=== PATIENT | male | born 1990 | race Caucasian/White ===

== ENCOUNTER 2017-06-29 19:43 | Emergency (ER) | payer SELFPAY ==
[2017-06-29 19:52] VITALS: BP 139/91
[2017-06-29] MEDS ORDERED: PREDNISONE 20 MG TABLET PO ONE (20:19)
[2017-06-29] MEDS ORDERED: IPRATROPIUM/ALBUTEROL 0.5-2.5 MG/3 ML AMPUL NEB ONE ×2 (20:19)
--- NOTE | 2017-06-29 20:23 | ER Document Report ---
ED Respiratory Problem - General Chief Complaint: Asthma Exacerbation Stated Complaint: DIFFICULTY BREATHING Time Seen by Provider: 06/29/17 20:01 Notes: Patient is a 27-year-old male with a history of asthma that comes emergency department for chief complaint of wheezing and shortness of breath. He states that for his job he entered a home that has a lot of cats, he states after he left to be started having increased wheezing and difficulty breathing. He does not have an inhaler anymore. He denies fever, cough, congestion, sick symptoms. He does not smoke. He denies any other medical history. He denies any daily medications. TRAVEL OUTSIDE OF THE [place] IN LAST 30 DAYS: No Past Medical History - General Information source: Patient - Social History Smoking Status: Never Smoker Frequency of alcohol use: None Drug Abuse: None Lives with: Alone Family History: Reviewed & Not Pertinent Pulmonary Medical History: Reports: Hx Asthma Surgical Hx: Negative - Immunizations Immunizations up to date: Yes Hx Diphtheria, Pertussis, Tetanus Vaccination: Yes Review of Systems - Review of Systems Constitutional: No symptoms reported EENT: No symptoms reported Cardiovascular: No symptoms reported Respiratory: See HPI Gastrointestinal: No symptoms reported Genitourinary: No symptoms reported Male Genitourinary: No symptoms reported Musculoskeletal: No symptoms reported Skin: No symptoms reported Hematologic/Lymphatic: No symptoms reported Neurological/Psychological: No symptoms reported Physical Exam - Vital signs Vitals: Temp Pulse Resp BP Pulse Ox 97.7 F 95 18 139/91 H 94 06/29/17 19:51 06/29/17 19:51 06/29/17 19:51 06/29/17 19:51 06/29/17 19:51 Interpretation: Normal - General General appearance: Appears well, Alert In distress: None - HEENT Head: Normocephalic, Atraumatic Eyes: Normal Conjunctiva: Normal Extraocular movements intact: Yes Eyelashes: Normal Pupils: PERRL Mouth/Lips: Normal Mucous membranes: Normal Pharynx: Normal Neck: Normal - Respiratory Respiratory status: No respiratory distress. No: Respiratory distress, Labored , Tachypnea Chest status: Nontender Breath sounds: Decreased air movement, Wheezing - End expiratory wheezes throughout. No: Nonproductive cough, Productive cough Chest palpation: Normal - Cardiovascular Rhythm: Regular Heart sounds: Normal auscultation Murmur: No - Abdominal Inspection: Normal Distension: No distension Bowel sounds: Normal Tenderness: Nontender Organomegaly: No organomegaly - Back Back: Normal, Nontender. No: Tender - Extremities General upper extremity: Normal inspection, Nontender, Normal ROM, Normal strength General lower extremity: Normal inspection, Nontender, Normal ROM, Normal strength - Neurological Neuro grossly intact: Yes Cognition: Normal Orientation: AAOx4 [place] Coma Scale Eye Opening: Spontaneous [place] Coma Scale Verbal: Oriented [place] Coma Scale Motor: Obeys Commands [place] Coma Scale Total: 15 Speech: Normal Motor strength normal: LUE, RUE, LLE, RLE Sensory: Normal - Psychological Associated symptoms: Normal affect, Normal mood - Skin Skin Temperature: Warm Skin Moisture: Dry Skin Color: Normal Course - Re-evaluation Re-evalutation: After DuoNeb's, prednisone, patient's symptoms completely resolved. Clear lungs on repeat examination. No hypoxia or signs of distress. No sick symptoms. Patient given albuterol inhaler for home, discussed follow-up, discussed return precautions, patient states understanding and agreement. - Vital Signs Vital signs: Temp Pulse Resp BP Pulse Ox 97.7 F 95 18 139/91 H 94 06/29/17 19:51 06/29/17 19:51 06/29/17 19:51 06/29/17 19:51 06/29/17 19:51 Discharge - Discharge Clinical Impression: Wheezing Asthma exacerbation Qualifiers: Asthma severity: unspecified severity Asthma persistence: intermittent Qualified Code(s): J45.21 - Mild intermittent asthma with (acute) exacerbation Condition: Stable Disposition: HOME, SELF-CARE Additional Instructions: Your examination is consistent with an asthma exacerbation. Take the prednisone as prescribed, the albuterol as directed. I recommend an [id number] antiallergy medication daily. Follow-up with primary care. Return to the emergency department for any concerning or worsening symptoms. Prescriptions: Albuterol Sulfate [Proair HFA Inhalation Aerosol 8.5 gm MDI] 2 puff IH Q4H PRN # 1 mdi PRN Reason: Prednisone 60 mg PO DAILY #12 tablet Forms: Return to Work
[2017-06-29] MEDS ORDERED: ALBUTEROL SULFATE HFA (90 MCG/PUFF) 8 GM MDI (1 MDI/ER DISP) IH ONE (21:34)
== END 2017-06-29 21:49 | disposition home or self-care (01) ==
LOC: ER 19:43
DX: J45.21 Mild intermittent asthma with (acute) exacerbation (principal); R06.02 Shortness of breath
CPT/HCPCS: 94640 ×2; 99284; J7512; J3490; J7620

== ENCOUNTER 2018-10-30 14:13 | Emergency (ER) | payer SELFPAY ==
[2018-10-30] MEDS ORDERED: HYDROCODONE/ACETAMINOPHEN 5-325 MG (6 TAB/ER DISP) PO PRN (15:47)
[2018-10-30] MEDS ORDERED: IBUPROFEN 800 MG TABLET PO ONE (15:49)
--- NOTE | 2018-10-30 15:50 | ER Document Report ---
ED General - General Chief Complaint: Finger Injury Stated Complaint: LEFT THIRD DIGIT PAIN, SWELLING Time Seen by Provider: 10/30/18 15:43 Mode of Arrival: Ambulatory Information source: Patient TRAVEL OUTSIDE OF THE [place] IN LAST 30 DAYS: No - HPI Patient complains to provider of: Left middle finger paronychia Onset: Other - Past couple of days Onset/Duration: Sudden Quality of pain: No pain Severity: None Associated symptoms: denies: Chills, Fever Exacerbated by: Denies Relieved by: Denies Similar symptoms previously: No Recently seen / treated by doctor: No Notes: 28-year-old male with history of nail biting here with a paronychia to the left middle finger. No fevers or chills. No history of diabetes or other immune compromise. - Related Data Allergies/Adverse Reactions: aspirin [From Excedrin Extra Strength] Allergy (Verified 10/30/18 15:34) caffeine [From Excedrin Extra Strength] Allergy (Verified 10/30/18 15:34) cat dander Allergy (Verified 10/30/18 15:34) Past Medical History - General Information source: Patient - Social History Smoking Status: Never Smoker Chew tobacco use (# tins/day): No Frequency of alcohol use: Occasional Drug Abuse: None Family History: Reviewed & Not Pertinent Patient has suicidal ideation: No Patient has homicidal ideation: No Pulmonary Medical History: Reports: Hx Asthma Renal/ Medical History: Denies: Hx Peritoneal Dialysis - Immunizations Immunizations up to date: Yes Hx Diphtheria, Pertussis, Tetanus Vaccination: Yes Review of Systems - Review of Systems Notes: Constitutional: No fevers. No chills. EENT: No eye redness. No eye pain. No ear pain. No sore throat. Cardiovascular: No chest pain. No palpitations. Respiratory: No cough. No shortness of breath. No respiratory distress. Gastrointestinal: No abdominal pain. No nausea, vomiting, or diarrhea. Genitourinary: Atraumatic. No lesions. No pain. No discharge. Musculoskeletal: Atraumatic. No swelling. No deformities. Positive paronychia left middle finger Skin: No rash or lesions. Lymphatic: No swollen lymph nodes. Neurologic: No headache. No syncope. Psychiatric: No suicidal or homicidal ideation. Physical Exam - Vital signs Vitals: Temp Pulse Resp BP Pulse Ox 98.3 F 83 16 142/90 H 97 10/30/18 14:19 10/30/18 14:19 10/30/18 14:19 10/30/18 14:19 10/30/18 14:19 - Notes Notes: General: Well-developed, well-nourished. In no acute distress. Non-toxic appearing. Cardiac: Well-perfused. Regular rate and rhythm. No murmurs, rubs, or gallops. Pulmonary: No respiratory distress. No cyanosis. Bilateral lung fiels are clear to auscultation. Abdominal: Non-distended. Non-rigid. Bowels sounds are present in all four quadrants. No guarding or rebound. HEENT: Head is atraumatic. Conjunctivae not reddened. No tearing. PERRL. EOMI. Orbits atraumatic. No periorbital swelling or erythema. Oropharynx is without erythema, swelling, or exudates. Neck: Supple. No adenopathy. No meningismus. Dermatologic: Warm with good turgor. No rash. Atraumatic. Chest: Atraumatic. No chest wall tenderness to palpation. Musculoskeletal: Moves all extremities well. No range of motion deficits. no muscular or joint tenderness. No paraspinal muscle tenderness. no midline spinal tenderness or step-off. Paronychia present to the left middle finger. Very tender to palpate. No lymphangitis. Genitourinary: Examination deferred Neurologic: No gross neurologic deficits. Psychiatric: Normal mood. Course - Re-evaluation Re-evalutation: 10/30/18 15:45 Procedure note: The paronychia was prepped with Betadine swabs. No anesthesia was administered. Simple stab to the purulent part of the paronychia with an 11 blade scalpel. Copious yellow-green foul-smelling material approximately 2 mL's. Soaked in Betadine and saline and dressed appropriately. Tolerated procedure well. - Vital Signs Vital signs: Temp Pulse Resp BP Pulse Ox 98.3 F 83 16 142/90 H 97 10/30/18 14:19 10/30/18 14:19 10/30/18 14:19 10/30/18 14:19 10/30/18 14:19 Discharge - Discharge Clinical Impression: Paronychia Condition: Good Disposition: HOME, SELF-CARE Instructions: Post Incision and Drainage, Paronychia ([facility]) Additional Instructions: Return as needed the emergency department if symptoms not improving in the next couple of days. Take all antibiotics until they are completed. Prescriptions: Sulfamethoxazole/Trimethoprim [Bactrim Ds Tablet] 1 each PO BID #20 tablet Referrals: [facility] [Provider Group] - Follow up as needed
[2018-10-30 16:51] VITALS: BP 132/88
== END 2018-10-30 16:39 | disposition home or self-care (01) ==
LOC: ER 14:13
DX: L03.012 Cellulitis of left finger (principal); Z88.6 Allergy status to analgesic agent
CPT/HCPCS: 99283